=== PATIENT | male | born 1935 | race Asian ===

== ENCOUNTER 2017-05-14 17:22 | Emergency (ER) | payer OTHER ==
[~2017-05-14] VITALS: Ht 162.6 cm; Wt 58.5 kg
[2017-05-14 17:24] VITALS: BP 175/71
[2017-05-14] MEDS ORDERED: ACETAMINOPHEN 500 MG TABLET PO ONE (19:00)
[2017-05-14] MEDS ORDERED: ACETAMINOPHEN 500 MG TABLET ONE (19:06)
== END 2017-05-14 19:55 | disposition home or self-care (01) ==
LOC: ED 19:23
DX: S09.90XA Unspecified injury of head, initial encounter (principal); W11.XXXA Fall on and from ladder, initial encounter; Y93.89 Activity, other specified; Y92.009 Unspecified place in unspecified non-institutional (private) residence as the place of occurrence of the external cause; Y99.9 Unspecified external cause status
CPT/HCPCS: 70450; 72125; 99284

== ENCOUNTER 2020-06-30 14:33 | Inpatient (IN) | payer MEDICARE, OTHER ==
[~2020-06-30] VITALS: Ht 162.6 cm; Wt 65.1 kg
--- NOTE | 2020-06-30 15:20 | NUR ---
PIV PLACED, LABS AND 1 SET BLOOD CX DRAWN AND COLLECTED BY ENGLISH LECTURER. IVF RUNNING. PT SHIVERING, WARM BLANKET PROVIDED. CONNECTED TO MONITORING. XRAY AT BEDSIDE. CALL LIGHT IN REACH.
[2020-06-30] MEDS ORDERED: ACETAMINOPHEN 500 MG TABLET PO ONE (15:30)
[2020-06-30] MEDS ORDERED: SODIUM CHLORIDE FLUSH 10ML SYR IVF ONE (15:30)
[2020-06-30] MEDS ORDERED: ACETAMINOPHEN 500 MG TABLET ONE (15:40)
[2020-06-30 15:46] LABS: BASOPHILS % (AUTO) 0 % (0-1); EOSINOPHILS % (AUTO) 0 % (1-7); LYMPHOCYTES % (AUTO) 27 % (22-44); MEAN CORPUSCULAR HEMOGLOBIN 32.1 pg (27.5-34.5); MEAN CORPUSCULAR HGB CONC 34.7 g/dL (33.2-36.2); MONOCYTES % (AUTO) 8 % (2-9); NEUTROPHILS % (AUTO) 65 % (42-75); PLATELET COUNT 133 x10^3/uL (130-400); RED BLOOD COUNT 4.37 x10^6/uL (4.38-5.82); RED CELL DISTRIBUTION WIDTH 14.2 % (9.4-14.8)
[2020-06-30 15:47] LABS: MD NO
[2020-06-30 15:52] LABS: ALANINE AMINOTRANSFERASE 36 U/L (12-78); ALBUMIN 3.4 g/dL (3.4-5.0); ANION GAP 10 mmol/L (5-15); CALCIUM 8.2 mg/dL (8.5-10.1); CHLORIDE 107 mmol/L (98-107); CREATININE 1.45 mg/dL (0.7-1.3)
[2020-06-30 15:54] LABS: ALKALINE PHOSPHATASE 72 U/L (45-117); BILIRUBIN,TOTAL 0.6 mg/dL (0.2-1.0); TOTAL PROTEIN 7.9 g/dL (6.4-8.2)
[2020-06-30] MEDS ORDERED: SODIUM CHLORIDE 0.9% 1,000ML IVBOLUS ONE (16:00)
[2020-06-30] MEDS ORDERED: CARB200T4 PO (16:18)
[2020-06-30] MEDS ORDERED: AMLO-150 PO (16:18)
[2020-06-30] MEDS ORDERED: FINA5TAB4 PO (16:18)
[2020-06-30 16:23] LABS: MICROSCOPIC AUTO
[2020-06-30] MEDS ORDERED: CEFTRIAXONE PMX 1GM/50ML 50 ML IVPB ONE (16:30)
[2020-06-30] MEDS ORDERED: AZITHROMYCIN 500 MG in SODIUM CHLORIDE 0.9% 250 ML IVPB ONE (16:30)
[2020-06-30] MEDS ORDERED: DEXAMETHASONE 4 MG/ML, 1ML IVPush ONE (16:30)
[2020-06-30] MEDS ORDERED: CEFTRIAXONE PMX 1GM/50ML 50 ML ONE (16:45)
[2020-06-30] MEDS ORDERED: DEXAMETHASONE 4 MG/ML, 5ML ONE (16:45)
--- NOTE | 2020-06-30 16:55 | NUR ---
IV ABX ADMIN PER AUG. 2 SETS BLOOD CX COLLECTED PRIOR TO ADMIN. PT RESTING COMFORTABLY ON [facility].
[2020-06-30] MEDS ORDERED: LACTATED RINGERS 1,000 ML IVBOLUS ONE (17:00)
[2020-06-30] MEDS: DEXAMETHASONE 4 MG/ML, 1ML IVPush SCH (17:00)
[2020-06-30] MEDS ORDERED: POLYETHYLENE GLYCOL 17 GM PACKET PO PRN (17:00)
[2020-06-30] MEDS ORDERED: ONDANSETRON 2MG/ML, 2ML IVPush PRN (17:00)
[2020-06-30] MEDS ORDERED: HEPARIN 5,000 UNITS/ML, 1ML SQ SCH (17:00)
--- NOTE | 2020-06-30 17:55 | NUR ---
BREAK RN NOTE: MD VARNER INFORMED PT HAS NOT HAD COVID TEST. COVID TEST ORDEREDPT A&O, RESPS EVEN AND UNLABORED, PT ABLE TO SPEAK IN FULL SENTENCES WITHOUT DIFFICULTY. NSR ON DESK SERGEANT WITH NO ECTOPY. COVID SWAB COLLECTED AND WALKED TO LAB. BEDSIDE REPORT GIVEN BACK TO PRIMARY RN TIFFANIE WHO IS BACK FROM BREAK. DURING REPORT PT'S SPO2 DROPPED TO 85% ON 4L/MIN VIA NC. OXYGEN TITRATED UP TO 6L/MIN, CURRENTLY SATURATING AT 90% ON 6L NC. PT STILL AWAKE, ALERT, ABLE TO SPEAK WITHOUT DIFFICULTY. PT HAS NO COMPLAINT, STATES "I FEEL GOOD." ALL MONITORS IN PLACE .ZITHROMAX INFUSION COMPLETE.
[2020-06-30] MEDS ORDERED: REMDESIVIR 200 MG in SODIUM CHLORIDE 0.9% 250 ML IVPB ONE (18:00)
--- NOTE | 2020-06-30 18:22 | NUR ---
LEFT MESSAGE WITH DR RIOS ABOUT PT LOW BP AND INCREASED OXYGEN DEMAND. AWAITING ORDERS.
--- NOTE | 2020-06-30 18:33 | NUR ---
DR RIOS AT BEDSIDE FOR ASSESSMENT. VERBAL ORDER TO GIVE BOLUS AND THEN REMDESIVIR. PT PLACED ON NON REBREATHER.
--- NOTE | 2020-06-30 19:21 | NUR ---
DIET TRAY DELIVERED. PT POSITIONED FOR COMFORT. PT EDUCATED TO REMOVE OXYGEN MASK FOR A COUPLE OF BITES OF FOOD, THEN RETURN MASK TO POSITION. LAB AT BEDSIDE.
[2020-06-30] MEDS ORDERED: CARBAMAZEPINE 200 MG TABLET ONE (19:38)
[2020-06-30] MEDS ORDERED: GUAIFENESIN ER 600 MG TABLET ONE (19:39)
[2020-06-30] MEDS ORDERED: ASCORBIC ACID 500 MG TABLET ONE (19:39)
[2020-06-30] MEDS ORDERED: ENOXAPARIN 60 MG/0.6 ML ONE (19:39)
[2020-06-30] MEDS: GUAIFENESIN ER 600 MG TABLET PO SCH (19:42)
[2020-06-30] MEDS: DOXYCYCLINE 100MG CAP PO SCH (19:43)
[2020-06-30] MEDS: CARBAMAZEPINE 200 MG TABLET PO SCH (19:43)
[2020-06-30] MEDS: ASCORBIC ACID 500 MG TABLET PO SCH (19:43)
[2020-06-30] MEDS ORDERED: ENOXAPARIN 60 MG/0.6 ML SQ SCH (20:00)
--- NOTE | 2020-06-30 20:13 | NUR ---
REPORT GIVEN TO KERA CLAYTON. PT RTG TO ROOM [id number].
[2020-06-30 21:13] VITALS: BP 122/72
[2020-06-30 21:20] VITALS: BP 122/72
[2020-07-01 02:53] VITALS: BP 113/65
[2020-07-01 06:13] LABS: ALBUMIN 2.7 g/dL (3.4-5.0); ANION GAP 5 mmol/L (5-15); CALCIUM 7.8 mg/dL (8.5-10.1); CHLORIDE 116 mmol/L (98-107)
[2020-07-01 06:18] LABS: ALANINE AMINOTRANSFERASE 37 U/L (12-78); ALKALINE PHOSPHATASE 66 U/L (45-117); BILIRUBIN,TOTAL 0.4 mg/dL (0.2-1.0); TOTAL PROTEIN 6.6 g/dL (6.4-8.2)
[2020-07-01 07:01] VITALS: BP 110/69
[2020-07-01] MEDS: CARBAMAZEPINE 200 MG TABLET PO SCH ×2 (08:18→20:48)
[2020-07-01] MEDS: ZINC SULFATE 220 MG CAPSULE PO SCH (08:18)
[2020-07-01] MEDS: GUAIFENESIN ER 600 MG TABLET PO SCH ×2 (08:18→20:47)
[2020-07-01] MEDS: FINASTERIDE 5 MG TABLET PO SCH (08:18)
[2020-07-01] MEDS: ASCORBIC ACID 500 MG TABLET PO SCH ×2 (08:19→18:06)
[2020-07-01] MEDS: CHOLECALCIFEROL 5,000u TAB PO SCH (08:19)
[2020-07-01] MEDS: DOXYCYCLINE 100MG CAP PO SCH ×2 (08:19→20:48)
[2020-07-01] MEDS: ENOXAPARIN 60 MG/0.6 ML SQ SCH ×2 (08:20→20:47)
[2020-07-01] MEDS: DEXAMETHASONE 4 MG/ML, 1ML IVPush SCH (08:21)
[2020-07-01] MEDS ORDERED: AMLODIPINE 5 MG TABLET PO SCH (09:00)
[2020-07-01 13:33] VITALS: BP 123/73
[2020-07-01] MEDS: CEFTRIAXONE PMX 1GM/50ML 50 ML IV SCH (15:38)
[2020-07-01] MEDS: REMDESIVIR 100 MG in SODIUM CHLORIDE 0.9% 250 ML IVPB SCH (18:06)
[2020-07-01 20:42] VITALS: BP 123/70
[2020-07-02 00:56] VITALS: BP 132/62
[2020-07-02 06:21] LABS: CALCIUM 7.9 mg/dL (8.5-10.1); CHLORIDE 113 mmol/L (98-107)
[2020-07-02 06:27] LABS: ALANINE AMINOTRANSFERASE 33 U/L (12-78); ALBUMIN 2.5 g/dL (3.4-5.0); ALKALINE PHOSPHATASE 66 U/L (45-117); ANION GAP 8 mmol/L (5-15); BILIRUBIN,TOTAL 0.5 mg/dL (0.2-1.0); CREATININE 0.91 mg/dL (0.7-1.3); TOTAL PROTEIN 6.3 g/dL (6.4-8.2)
[2020-07-02 06:28] VITALS: BP 149/56
[2020-07-02] MEDS: ASCORBIC ACID 500 MG TABLET PO SCH ×2 (08:03→17:53)
[2020-07-02] MEDS: ZINC SULFATE 220 MG CAPSULE PO SCH (08:03)
[2020-07-02] MEDS: DEXAMETHASONE 4 MG/ML, 1ML IVPush SCH (08:03)
[2020-07-02] MEDS: GUAIFENESIN ER 600 MG TABLET PO SCH ×2 (08:03→20:20)
[2020-07-02] MEDS: CARBAMAZEPINE 200 MG TABLET PO SCH ×2 (08:03→20:20)
[2020-07-02] MEDS: FINASTERIDE 5 MG TABLET PO SCH (08:03)
[2020-07-02] MEDS: CHOLECALCIFEROL 5,000u TAB PO SCH (08:04)
[2020-07-02] MEDS: DOXYCYCLINE 100MG CAP PO SCH ×2 (08:04→20:19)
[2020-07-02] MEDS: ENOXAPARIN 60 MG/0.6 ML SQ SCH ×2 (08:04→20:19)
[2020-07-02] MEDS: FLUTICASONE/VILANTEROL 100-25MCG/INH INH SCH (09:53)
[2020-07-02 12:06] VITALS: BP 129/83
[2020-07-02] MEDS: CEFTRIAXONE PMX 1GM/50ML 50 ML IV SCH (14:42)
[2020-07-02] MEDS: REMDESIVIR 100 MG in SODIUM CHLORIDE 0.9% 250 ML IVPB SCH (17:53)
[2020-07-02 20:14] VITALS: BP 165/85
[2020-07-02] MEDS: MELATONIN 5 MG TABLET PO PRN (20:20)
[2020-07-03 00:54] VITALS: BP 147/65
[2020-07-03 07:43] VITALS: BP 143/82
[2020-07-03 08:15] LABS: BASOPHILS % (AUTO) 0 % (0-1); EOSINOPHILS % (AUTO) 0 % (1-7); LYMPHOCYTES % (AUTO) 9 % (22-44); MEAN CORPUSCULAR HEMOGLOBIN 31.9 pg (27.5-34.5); MEAN CORPUSCULAR HGB CONC 34.8 g/dL (33.2-36.2); MEAN PLATELET VOLUME 8.1 fL (7.4-10.4); MONOCYTES % (AUTO) 6 % (2-9); NEUTROPHILS % (AUTO) 85 % (42-75); PLATELET COUNT 169 x10^3/uL (130-400); RED BLOOD COUNT 4.38 x10^6/uL (4.38-5.82); RED CELL DISTRIBUTION WIDTH 14.8 % (9.4-14.8)
[2020-07-03 08:22] LABS: MD NO
[2020-07-03 08:29] LABS: ALBUMIN 2.9 g/dL (3.4-5.0); ANION GAP 9 mmol/L (5-15); CHLORIDE 115 mmol/L (98-107)
[2020-07-03 08:32] LABS: ALANINE AMINOTRANSFERASE 37 U/L (12-78); ALKALINE PHOSPHATASE 86 U/L (45-117); BILIRUBIN,TOTAL 1.3 mg/dL (0.2-1.0); CREATININE 0.87 mg/dL (0.7-1.3); TOTAL PROTEIN 6.8 g/dL (6.4-8.2)
[2020-07-03] MEDS: ASCORBIC ACID 500 MG TABLET PO SCH ×2 (08:56→17:51)
[2020-07-03] MEDS: GUAIFENESIN ER 600 MG TABLET PO SCH ×2 (08:56→20:41)
[2020-07-03] MEDS: CHOLECALCIFEROL 5,000u TAB PO SCH (08:56)
[2020-07-03] MEDS: DEXAMETHASONE 4 MG/ML, 1ML IVPush SCH (08:56)
[2020-07-03] MEDS: CARBAMAZEPINE 200 MG TABLET PO SCH ×2 (08:56→20:41)
[2020-07-03] MEDS: ENOXAPARIN 60 MG/0.6 ML SQ SCH ×2 (08:56→20:41)
[2020-07-03] MEDS: FINASTERIDE 5 MG TABLET PO SCH (08:56)
[2020-07-03] MEDS: ZINC SULFATE 220 MG CAPSULE PO SCH (08:56)
[2020-07-03] MEDS: DOXYCYCLINE 100MG CAP PO SCH ×2 (08:57→20:41)
[2020-07-03] MEDS: FLUTICASONE/VILANTEROL 100-25MCG/INH INH SCH (08:59)
[2020-07-03] MEDS ORDERED: POTASSIUM CHLORIDE 20 MEQ in SODIUM CHLORIDE 0.9% 250 ML IV ONE (10:00)
[2020-07-03 14:12] VITALS: BP 159/80
[2020-07-03] MEDS: CEFTRIAXONE PMX 1GM/50ML 50 ML IV SCH (15:16)
[2020-07-03] MEDS: REMDESIVIR 100 MG in SODIUM CHLORIDE 0.9% 250 ML IVPB SCH (17:50)
[2020-07-03 19:07] VITALS: BP 181/93
[2020-07-04 01:03] VITALS: BP 174/84
[2020-07-04 07:40] VITALS: BP 130/77
[2020-07-04] MEDS: ENOXAPARIN 60 MG/0.6 ML SQ SCH ×2 (08:00→20:00)
[2020-07-04] MEDS: GUAIFENESIN ER 600 MG TABLET PO SCH ×2 (08:04→20:41)
[2020-07-04] MEDS: DEXAMETHASONE 4 MG/ML, 1ML IVPush SCH (08:04)
[2020-07-04] MEDS: FINASTERIDE 5 MG TABLET PO SCH (08:05)
[2020-07-04] MEDS: CARBAMAZEPINE 200 MG TABLET PO SCH ×2 (08:06→20:41)
[2020-07-04] MEDS: CHOLECALCIFEROL 5,000u TAB PO SCH (08:06)
[2020-07-04] MEDS: ASCORBIC ACID 500 MG TABLET PO SCH ×2 (08:06→16:19)
[2020-07-04] MEDS: ZINC SULFATE 220 MG CAPSULE PO SCH (08:07)
[2020-07-04] MEDS: DOXYCYCLINE 100MG CAP PO SCH ×2 (08:08→20:40)
[2020-07-04] MEDS: FLUTICASONE/VILANTEROL 100-25MCG/INH INH SCH (08:11)
[2020-07-04 09:33] LABS: ALBUMIN 2.9 g/dL (3.4-5.0); ANION GAP 12 mmol/L (5-15); CALCIUM 8.4 mg/dL (8.5-10.1); CHLORIDE 117 mmol/L (98-107)
[2020-07-04 09:37] LABS: ALANINE AMINOTRANSFERASE 65 U/L (12-78); ALKALINE PHOSPHATASE 107 U/L (45-117); BILIRUBIN,TOTAL 1.4 mg/dL (0.2-1.0); CREATININE 0.93 mg/dL (0.7-1.3)
[2020-07-04 12:58] LABS: INTERNATIONAL NORMALIZED RATIO 1.35 (0.93-1.1); PROTHROMBIN TIME 14.3 Seconds (9.6-11.5)
[2020-07-04] MEDS: CEFTRIAXONE PMX 1GM/50ML 50 ML IV SCH (16:19)
[2020-07-04] MEDS: REMDESIVIR 100 MG in SODIUM CHLORIDE 0.9% 250 ML IVPB SCH (17:55)
[2020-07-04 19:29] VITALS: BP 144/81
[2020-07-05 01:44] VITALS: BP 151/83
[2020-07-05] MEDS ORDERED: LORazepam 2 MG/ML, 1ML ONE (03:41)
[2020-07-05] MEDS ORDERED: LORazepam 2 MG/ML, 1ML IVPush ONE (04:00)
[2020-07-05] MEDS: ASCORBIC ACID 500 MG TABLET PO SCH ×2 (08:00→17:00)
[2020-07-05 08:06] VITALS: BP 144/96
[2020-07-05] MEDS: ZINC SULFATE 220 MG CAPSULE PO SCH (09:00)
[2020-07-05] MEDS: FLUTICASONE/VILANTEROL 100-25MCG/INH INH SCH (09:00)
[2020-07-05] MEDS: DOXYCYCLINE 100MG CAP PO SCH ×2 (09:00→20:37)
[2020-07-05] MEDS: CHOLECALCIFEROL 5,000u TAB PO SCH (09:00)
[2020-07-05] MEDS: FINASTERIDE 5 MG TABLET PO SCH (09:00)
[2020-07-05] MEDS: GUAIFENESIN ER 600 MG TABLET PO SCH ×2 (09:00→20:37)
[2020-07-05] MEDS: CARBAMAZEPINE 200 MG TABLET PO SCH ×2 (09:00→20:37)
[2020-07-05] MEDS: ENOXAPARIN 60 MG/0.6 ML SQ SCH ×2 (09:30→20:36)
[2020-07-05] MEDS: DEXAMETHASONE 4 MG/ML, 1ML IVPush SCH (09:30)
[2020-07-05] MEDS ORDERED: POTASSIUM CHLORIDE 20 MEQ in SODIUM CHLORIDE 0.9% 250 ML IV ONE (12:30)
[2020-07-05] MEDS ORDERED: FUROSEMIDE 40 MG/4 ML IV ONE ×2 (14:30→21:00)
[2020-07-05] MEDS: CEFTRIAXONE PMX 1GM/50ML 50 ML IV SCH (15:00)
[2020-07-05] MEDS ORDERED: POTASSIUM CHLORIDE 20 MEQ TAB.ER.PRT PO SCH (17:00)
[2020-07-05] MEDS ORDERED: POTASSIUM CHLORIDE 40 MEQ in SODIUM CHLORIDE 0.9% 500 ML IV ONE (17:30)
[2020-07-05] MEDS: ACETAMINOPHEN 325 MG TABLET PO PRN (20:37)
[2020-07-05] MEDS: MELATONIN 5 MG TABLET PO PRN (20:37)
[2020-07-06 05:26] LABS: BASOPHILS % (AUTO) 0 % (0-1); EOSINOPHILS % (AUTO) 0 % (1-7); LYMPHOCYTES % (AUTO) 10 % (22-44); MEAN CORPUSCULAR HEMOGLOBIN 32.1 pg (27.5-34.5); MEAN CORPUSCULAR HGB CONC 34.8 g/dL (33.2-36.2); MEAN PLATELET VOLUME 8.7 fL (7.4-10.4); MONOCYTES % (AUTO) 4 % (2-9); NEUTROPHILS % (AUTO) 86 % (42-75); PLATELET COUNT 194 x10^3/uL (130-400); RED BLOOD COUNT 4.85 x10^6/uL (4.38-5.82); RED CELL DISTRIBUTION WIDTH 14.4 % (9.4-14.8)
[2020-07-06 05:27] LABS: MD NO
[2020-07-06 05:39] LABS: CHLORIDE 119 mmol/L (98-107)
[2020-07-06 05:48] LABS: ALBUMIN 2.8 g/dL (3.4-5.0); ANION GAP 9 mmol/L (5-15); CALCIUM 8.9 mg/dL (8.5-10.1); CREATININE 1.21 mg/dL (0.7-1.3)
[2020-07-06] MEDS: ENOXAPARIN 60 MG/0.6 ML SQ SCH ×2 (08:02→20:37)
[2020-07-06] MEDS: GUAIFENESIN ER 600 MG TABLET PO SCH ×2 (08:02→21:54)
[2020-07-06] MEDS: DEXAMETHASONE 4 MG/ML, 1ML IVPush SCH (08:02)
[2020-07-06] MEDS: DOXYCYCLINE 100MG CAP PO SCH ×2 (08:02→20:37)
[2020-07-06] MEDS: ASCORBIC ACID 500 MG TABLET PO SCH ×2 (08:02→16:35)
[2020-07-06] MEDS: POTASSIUM CHLORIDE 20 MEQ TAB.ER.PRT PO SCH ×2 (08:03→16:35)
[2020-07-06] MEDS: CARBAMAZEPINE 200 MG TABLET PO SCH ×2 (08:03→20:38)
[2020-07-06] MEDS: CHOLECALCIFEROL 5,000u TAB PO SCH (08:03)
[2020-07-06] MEDS: ZINC SULFATE 220 MG CAPSULE PO SCH (08:03)
[2020-07-06] MEDS: FINASTERIDE 5 MG TABLET PO SCH (08:03)
[2020-07-06] MEDS: FUROSEMIDE 40 MG/4 ML IV SCH ×2 (08:05→16:35)
[2020-07-06] MEDS: FLUTICASONE/VILANTEROL 100-25MCG/INH INH SCH (09:00)
[2020-07-06] MEDS: CEFTRIAXONE PMX 1GM/50ML 50 ML IV SCH (16:35)
[2020-07-06 20:24] VITALS: BP 136/83
[2020-07-06] MEDS: ACETAMINOPHEN 325 MG TABLET PO PRN (20:38)
[2020-07-06] MEDS: MELATONIN 5 MG TABLET PO PRN (20:38)
[2020-07-07 00:25] VITALS: BP 110/71
[2020-07-07] MEDS: DOXYCYCLINE 100MG CAP PO SCH ×2 (09:00→20:36)
[2020-07-07] MEDS: ASCORBIC ACID 500 MG TABLET PO SCH ×2 (09:21→16:03)
[2020-07-07] MEDS: ZINC SULFATE 220 MG CAPSULE PO SCH (09:21)
[2020-07-07] MEDS: GUAIFENESIN 200 MG TABLET PO SCH ×3 (09:21→20:36)
[2020-07-07] MEDS: CHOLECALCIFEROL 5,000u TAB PO SCH (09:21)
[2020-07-07] MEDS: ENOXAPARIN 60 MG/0.6 ML SQ SCH (09:21)
[2020-07-07] MEDS: DEXAMETHASONE 4 MG/ML, 1ML IVPush SCH (09:21)
[2020-07-07] MEDS: CARBAMAZEPINE 200 MG TABLET PO SCH (09:21)
[2020-07-07] MEDS ORDERED: LACTULOSE 20 GM/30 ML UDC PO PRN (09:30)
[2020-07-07] MEDS ORDERED: BISACODYL 10 MG SUPP PR PRN (09:30)
[2020-07-07] MEDS ORDERED: LACTULOSE 20 GM/30 ML UDC NG PRN (09:30)
[2020-07-07 09:32] LABS: ANION GAP 13 mmol/L (5-15); CALCIUM 9.1 mg/dL (8.5-10.1); CHLORIDE 117 mmol/L (98-107); CREATININE 1.74 mg/dL (0.7-1.3)
[2020-07-07] MEDS: ACETAMINOPHEN 325 MG TABLET PO PRN ×3 (09:34→20:35)
[2020-07-07] MEDS: FINASTERIDE 5 MG TABLET PO SCH (09:35)
[2020-07-07] MEDS ORDERED: POTASSIUM CHLORIDE 20 MEQ TAB.ER.PRT PO ONE (14:30)
[2020-07-07] MEDS: CEFTRIAXONE PMX 1GM/50ML 50 ML IV SCH (16:04)
[2020-07-07] MEDS: MELATONIN 5 MG TABLET PO PRN (20:36)
[2020-07-07] MEDS: SENNA 176 MG/5 ML ORAL SOL NG SCH (20:36)
[2020-07-08 05:43] LABS: BASOPHILS % (AUTO) 0 % (0-1); EOSINOPHILS % (AUTO) 1 % (1-7); LYMPHOCYTES % (AUTO) 4 % (22-44); MEAN CORPUSCULAR HEMOGLOBIN 31.6 pg (27.5-34.5); MEAN CORPUSCULAR HGB CONC 34.1 g/dL (33.2-36.2); MEAN PLATELET VOLUME 9.6 fL (7.4-10.4); MONOCYTES % (AUTO) 2 % (2-9); NEUTROPHILS % (AUTO) 94 % (42-75); PLATELET COUNT 178 x10^3/uL (130-400); RED BLOOD COUNT 4.99 x10^6/uL (4.38-5.82)
[2020-07-08 05:54] LABS: ALANINE AMINOTRANSFERASE 38 U/L (12-78); ALBUMIN 2.5 g/dL (3.4-5.0); ANION GAP 11 mmol/L (5-15); CALCIUM 8.8 mg/dL (8.5-10.1); CHLORIDE 121 mmol/L (98-107); CREATININE 1.42 mg/dL (0.7-1.3)
[2020-07-08 05:57] LABS: ALKALINE PHOSPHATASE 104 U/L (45-117); BILIRUBIN,TOTAL 0.9 mg/dL (0.2-1.0); TOTAL PROTEIN 7.8 g/dL (6.4-8.2)
[2020-07-08 06:04] LABS: MD SCAN
[2020-07-08] MEDS ORDERED: ENOXAPARIN 60 MG/0.6 ML SQ SCH (08:00)
[2020-07-08] MEDS ORDERED: MIDAZOLAM 1 MG/ML, 5ML IVPush ONE (09:30)
[2020-07-08] MEDS ORDERED: ETOMIDATE 20 MG/10 ML IVPush ONE (09:30)
[2020-07-08] MEDS: PROPOFOL 100 ML IV PRN ×2 (09:45→16:16)
--- NOTE | 2020-07-08 09:45 | NUR ---
TF goal if needed: w/ propofol: OSMOLITE 1.2 @ 55ML/HR off propofol: OSMOLITE 1.2 @ 60ML/HR
[2020-07-08] MEDS ORDERED: FENTANYL PF 100 MCG/2ML IVPush PRN (10:00)
[2020-07-08] MEDS ORDERED: PROPOFOL 100 ML IV PRN (10:00)
[2020-07-08] MEDS ORDERED: PHARMACY MAY ADJ FOR RENAL FX MC SCH (10:00)
[2020-07-08] MEDS ORDERED: LIDOCAINE-MPF 1%, 2ML ENDO PRN (10:00)
[2020-07-08] MEDS: GUAIFENESIN 200 MG TABLET PO SCH ×3 (10:28→20:49)
[2020-07-08] MEDS: DEXAMETHASONE 4 MG/ML, 1ML IVPush SCH (10:28)
[2020-07-08] MEDS: DOCUSATE 50 MG/5 ML, 10ML UDC PO SCH (10:28)
[2020-07-08] MEDS: CARBAMAZEPINE 200 MG TABLET PO SCH (10:29)
[2020-07-08] MEDS: ASCORBIC ACID 500 MG TABLET PO SCH ×2 (10:29→16:16)
[2020-07-08] MEDS: ENOXAPARIN 60 MG/0.6 ML SQ SCH ×2 (10:30→20:49)
[2020-07-08] MEDS: FINASTERIDE 5 MG TABLET PO SCH (10:30)
[2020-07-08] MEDS: CHOLECALCIFEROL 5,000u TAB PO SCH (10:33)
[2020-07-08] MEDS: ZINC SULFATE 220 MG CAPSULE PO SCH (10:33)
[2020-07-08] MEDS: PANTOPRAZOLE 40 MG IV IV SCH (10:50)
[2020-07-08] MEDS ORDERED: PROPOFOL 10 MG/ML, 100ML IV ONE (13:30)
[2020-07-08] MEDS ORDERED: MIDAZOLAM 1 MG/ML, 5ML ONE (13:30)
[2020-07-08] MEDS ORDERED: ETOMIDATE 20 MG/10 ML ONE (13:30)
[2020-07-08] MEDS: ACETAMINOPHEN 325 MG TABLET PO PRN (14:12)
[2020-07-08 14:33] LABS: FIO2 70 %
[2020-07-08] MEDS: CEFTRIAXONE PMX 1GM/50ML 50 ML IV SCH (15:24)
[2020-07-08] MEDS ORDERED: NOREPINEPHRINE 8 MG in SODIUM CHLORIDE 0.9% 242 ML IV PRN (15:30)
[2020-07-08] MEDS: SENNA 176 MG/5 ML ORAL SOL NG SCH (20:49)
[2020-07-09 04:26] LABS: BASOPHILS % (AUTO) 0 % (0-1); EOSINOPHILS % (AUTO) 1 % (1-7); LYMPHOCYTES % (AUTO) 5 % (22-44); MEAN CORPUSCULAR HEMOGLOBIN 32.4 pg (27.5-34.5); MEAN CORPUSCULAR HGB CONC 34.4 g/dL (33.2-36.2); MEAN PLATELET VOLUME 9.6 fL (7.4-10.4); MONOCYTES % (AUTO) 1 % (2-9); NEUTROPHILS % (AUTO) 93 % (42-75); PLATELET COUNT 161 x10^3/uL (130-400); RED BLOOD COUNT 4.47 x10^6/uL (4.38-5.82); RED CELL DISTRIBUTION WIDTH 15.2 % (9.4-14.8)
[2020-07-09 04:30] LABS: MD NO
[2020-07-09 04:33] LABS: ANION GAP 4 mmol/L (5-15); CALCIUM 7.8 mg/dL (8.5-10.1); CHLORIDE 119 mmol/L (98-107); CREATININE 1.42 mg/dL (0.7-1.3)
[2020-07-09] MEDS: DEXAMETHASONE 4 MG/ML, 1ML IVPush SCH (07:48)
[2020-07-09] MEDS: ZINC SULFATE 220 MG CAPSULE PO SCH (07:48)
[2020-07-09] MEDS: CHOLECALCIFEROL 5,000u TAB PO SCH (07:48)
[2020-07-09] MEDS: DOCUSATE 50 MG/5 ML, 10ML UDC PO SCH (07:48)
[2020-07-09] MEDS: ASCORBIC ACID 500 MG TABLET PO SCH ×2 (07:48→16:48)
[2020-07-09] MEDS: GUAIFENESIN 200 MG TABLET PO SCH ×3 (07:48→21:00)
[2020-07-09] MEDS: ENOXAPARIN 60 MG/0.6 ML SQ SCH ×2 (07:49→21:04)
[2020-07-09] MEDS: ACETAMINOPHEN 325 MG TABLET PO PRN ×3 (09:42→21:04)
[2020-07-09] MEDS: CARBAMAZEPINE 200 MG TABLET PO SCH (09:42)
[2020-07-09] MEDS: FINASTERIDE 5 MG TABLET PO SCH (10:36)
[2020-07-09] MEDS: PANTOPRAZOLE 40 MG IV IV SCH (10:36)
[2020-07-09] MEDS: PROPOFOL 100 ML IV PRN ×2 (14:31→23:53)
[2020-07-10 03:50] LABS: ANION GAP 4 mmol/L (5-15); CALCIUM 8.1 mg/dL (8.5-10.1); CHLORIDE 118 mmol/L (98-107); CREATININE 1.54 mg/dL (0.7-1.3)
[2020-07-10 04:06] LABS: BASOPHILS % (AUTO) 0 % (0-1); EOSINOPHILS % (AUTO) 1 % (1-7); LYMPHOCYTES % (AUTO) 4 % (22-44); MEAN CORPUSCULAR HEMOGLOBIN 31.9 pg (27.5-34.5); MEAN CORPUSCULAR HGB CONC 33.6 g/dL (33.2-36.2); MEAN PLATELET VOLUME 9.7 fL (7.4-10.4); MONOCYTES % (AUTO) 1 % (2-9); NEUTROPHILS % (AUTO) 93 % (42-75); PLATELET COUNT 149 x10^3/uL (130-400); RED BLOOD COUNT 4.21 x10^6/uL (4.38-5.82); RED CELL DISTRIBUTION WIDTH 15.2 % (9.4-14.8)
[2020-07-10 04:58] LABS: MD SCAN
[2020-07-10] MEDS: PANTOPRAZOLE 40 MG IV IV SCH (09:00)
[2020-07-10] MEDS ORDERED: ZINC SULFATE 220 MG CAPSULE PO SCH (09:00)
[2020-07-10] MEDS: DOCUSATE 50 MG/5 ML, 10ML UDC PO SCH (09:00)
[2020-07-10] MEDS ORDERED: CHOLECALCIFEROL 5,000u TAB PO SCH (09:00)
[2020-07-10] MEDS: CARBAMAZEPINE 200 MG TABLET PO SCH (09:21)
[2020-07-10] MEDS: IBUPROFEN 200 MG TABLET PO PRN (09:21)
[2020-07-10] MEDS: ASCORBIC ACID 500 MG TABLET PO SCH (09:22)
[2020-07-10] MEDS: GUAIFENESIN 200 MG TABLET PO SCH ×3 (09:22→21:00)
[2020-07-10] MEDS: FINASTERIDE 5 MG TABLET PO SCH (09:22)
[2020-07-10] MEDS: ENOXAPARIN 60 MG/0.6 ML SQ SCH (09:23)
[2020-07-10] MEDS: INSULIN LISPRO 100 UNITS/ML, PEN SQ-INSULIN SCH ×3 (09:26→21:00)
[2020-07-10] MEDS ORDERED: FUROSEMIDE 40 MG/4 ML IV ONE (10:00)
[2020-07-10] MEDS ORDERED: INSULIN LISPRO 100 UNITS/ML, PEN SQ-INSULIN SCH (11:00)
[2020-07-10] MEDS ORDERED: LORazepam 2 MG/ML, 1ML ONE (15:38)
[2020-07-10] MEDS ORDERED: LORazepam 2 MG/ML, 1ML IVPush ONE (16:00)
[2020-07-11] MEDS: INSULIN LISPRO 100 UNITS/ML, PEN SQ-INSULIN SCH ×4 (03:00→20:33)
[2020-07-11 03:10] LABS: MEAN CORPUSCULAR HEMOGLOBIN 31.6 pg (27.5-34.5); MEAN CORPUSCULAR HGB CONC 33.9 g/dL (33.2-36.2); MEAN PLATELET VOLUME 9.6 fL (7.4-10.4); PLATELET COUNT 146 x10^3/uL (130-400); RED CELL DISTRIBUTION WIDTH 14.9 % (9.4-14.8)
[2020-07-11 03:18] LABS: ANION GAP 5 mmol/L (5-15); CALCIUM 8.7 mg/dL (8.5-10.1); CHLORIDE 118 mmol/L (98-107); CREATININE 1.27 mg/dL (0.7-1.3); TRIGLYCERIDES 365 mg/dL (50-200)
[2020-07-11 03:35] LABS: MD YES
[2020-07-11 03:37] LABS: ANISOCYTOSIS 1+; BAND#(MANUAL) 0.37 x10^3/uL; BANDS%(MANUAL) 3 % (0-7); LYMPH#(MANUAL) 0.37 x10^3/uL (1-3.4); LYMPHS% (MANUAL) 3 % (22-44); MONOS#(MANUAL) 0.12 x10^3/uL (0.3-2.7); MONOS% (MANUAL) 1 % (2-9); MYELOCYTES# (MANUAL) 0.12 x10^3/uL (0-0); MYELOCYTES% (MANUAL) 1 % (0-0); SEG#(MANUAL) 11.32 x10^3/uL (1.8-6.8); SEGS% (MANUAL) 92 % (42-75)
[2020-07-11 03:38] LABS: <PLATELET ESTIMATE> ADEQUATE
[2020-07-11 03:39] LABS: <PLT MORPHOLOGY> NORMAL PLT MORPH
[2020-07-11] MEDS ORDERED: ENOXAPARIN 60 MG/0.6 ML SQ SCH (09:00)
[2020-07-11] MEDS: PANTOPRAZOLE 40 MG IV IV SCH (09:41)
[2020-07-11] MEDS: METOPROLOL TARTRATE 25 MG TAB PO SCH ×2 (10:36→17:03)
[2020-07-11] MEDS: FINASTERIDE 5 MG TABLET PO SCH (10:36)
[2020-07-11] MEDS: GUAIFENESIN 100 MG/5 ML, 10ML UDC PO SCH ×3 (10:36→20:19)
[2020-07-11] MEDS: DOCUSATE 50 MG/5 ML, 10ML UDC PO SCH (10:36)
[2020-07-11] MEDS: CARBAMAZEPINE 200 MG TABLET PO SCH (10:36)
[2020-07-11] MEDS: ACETAMINOPHEN 325 MG TABLET PO PRN (10:37)
[2020-07-11] MEDS: ENOXAPARIN 40 MG/0.4 ML SQ SCH (20:19)
[2020-07-11] MEDS: MELATONIN 5 MG TABLET PO PRN (20:19)
[2020-07-12] MEDS: INSULIN LISPRO 100 UNITS/ML, PEN SQ-INSULIN SCH ×4 (03:00→21:00)
[2020-07-12 04:10] LABS: BASOPHILS % (AUTO) 0 % (0-1); EOSINOPHILS % (AUTO) 1 % (1-7); LYMPHOCYTES % (AUTO) 7 % (22-44); MD NO; MEAN CORPUSCULAR HEMOGLOBIN 31.9 pg (27.5-34.5); MEAN CORPUSCULAR HGB CONC 34.1 g/dL (33.2-36.2); MEAN PLATELET VOLUME 9.7 fL (7.4-10.4); MONOCYTES % (AUTO) 2 % (2-9); NEUTROPHILS % (AUTO) 89 % (42-75); PLATELET COUNT 146 x10^3/uL (130-400); RED BLOOD COUNT 4.04 x10^6/uL (4.38-5.82); RED CELL DISTRIBUTION WIDTH 14.8 % (9.4-14.8)
[2020-07-12 04:21] LABS: ANION GAP 5 mmol/L (5-15); CALCIUM 8.7 mg/dL (8.5-10.1); CHLORIDE 117 mmol/L (98-107); CREATININE 1.16 mg/dL (0.7-1.3)
[2020-07-12] MEDS: METOPROLOL TARTRATE 25 MG TAB PO SCH ×2 (05:36→17:58)
[2020-07-12] MEDS: DOCUSATE 50 MG/5 ML, 10ML UDC PO SCH (07:21)
[2020-07-12] MEDS: ENOXAPARIN 40 MG/0.4 ML SQ SCH (08:22)
[2020-07-12] MEDS: DEXTROSE 5% 1,000 ML IV SCH (08:22)
[2020-07-12] MEDS: GUAIFENESIN 100 MG/5 ML, 10ML UDC PO SCH ×3 (08:22→20:03)
[2020-07-12] MEDS: CARBAMAZEPINE 200 MG TABLET PO SCH (08:22)
[2020-07-12] MEDS: FINASTERIDE 5 MG TABLET PO SCH (08:22)
[2020-07-12] MEDS: PANTOPRAZOLE 40 MG IV IV SCH (08:50)
[2020-07-12] MEDS: ACETAMINOPHEN 325 MG TABLET PO PRN ×2 (09:54→18:51)
[2020-07-12] MEDS ORDERED: QUETIAPINE 25MG TABLET PO SCH (11:00)
[2020-07-12] MEDS: NOREPINEPHRINE 8 MG in SODIUM CHLORIDE 0.9% 242 ML IV PRN (12:44)
[2020-07-12 14:25] LABS: MICROSCOPIC AUTO
[2020-07-12] MEDS ORDERED: FUROSEMIDE 40 MG/4 ML IV ONE (19:30)
[2020-07-12] MEDS ORDERED: VANCOMYCIN PER PHARMACY MC PRN (19:30)
[2020-07-12] MEDS ORDERED: VANCOMYCIN 1,200 MG in SODIUM CHLORIDE 0.9% 250 ML IV ONE (20:00)
[2020-07-12] MEDS ORDERED: PHARMACOKINETIC MONITORING MC PRN (20:00)
[2020-07-12] MEDS: MEROPENEM 1 GM in SODIUM CHLORIDE 0.9% 100 ML IV SCH (20:02)
[2020-07-12] MEDS: MELATONIN 5 MG TABLET PO PRN (20:03)
[2020-07-12] MEDS ORDERED: ENOXAPARIN 60 MG/0.6 ML SQ SCH (20:30)
[2020-07-13] MEDS: DEXTROSE 5% 1,000 ML IV SCH (03:40)
[2020-07-13] MEDS: INSULIN LISPRO 100 UNITS/ML, PEN SQ-INSULIN SCH ×4 (03:40→21:00)
[2020-07-13 04:04] LABS: BASOPHILS % (AUTO) 0 % (0-1); EOSINOPHILS % (AUTO) 1 % (1-7); LYMPHOCYTES % (AUTO) 5 % (22-44); MEAN CORPUSCULAR HEMOGLOBIN 31.6 pg (27.5-34.5); MEAN PLATELET VOLUME 9.5 fL (7.4-10.4); MONOCYTES % (AUTO) 2 % (2-9); NEUTROPHILS % (AUTO) 92 % (42-75); PLATELET COUNT 133 x10^3/uL (130-400); RED CELL DISTRIBUTION WIDTH 14.9 % (9.4-14.8)
[2020-07-13 04:07] LABS: MD NO
[2020-07-13 04:13] LABS: ANION GAP 6 mmol/L (5-15); CHLORIDE 107 mmol/L (98-107); CREATININE 1.09 mg/dL (0.7-1.3)
[2020-07-13] MEDS: ACETAMINOPHEN 325 MG TABLET PO PRN ×2 (06:17→19:29)
[2020-07-13] MEDS: NOREPINEPHRINE 8 MG in SODIUM CHLORIDE 0.9% 242 ML IV PRN (06:28)
[2020-07-13] MEDS: DOCUSATE 50 MG/5 ML, 10ML UDC PO SCH (07:45)
[2020-07-13] MEDS: MEROPENEM 1 GM in SODIUM CHLORIDE 0.9% 100 ML IV SCH ×2 (07:54→20:29)
[2020-07-13] MEDS: GUAIFENESIN 100 MG/5 ML, 10ML UDC PO SCH ×3 (07:55→19:28)
[2020-07-13] MEDS: CARBAMAZEPINE 200 MG TABLET PO SCH (07:55)
[2020-07-13] MEDS: FINASTERIDE 5 MG TABLET PO SCH (08:28)
[2020-07-13] MEDS: ENOXAPARIN 40 MG/0.4 ML SQ SCH (08:29)
[2020-07-13] MEDS: PANTOPRAZOLE 40 MG IV IV SCH (09:00)
[2020-07-13] MEDS ORDERED: VANCOMYCIN 1,200 MG in SODIUM CHLORIDE 0.9% 250 ML IV ONE (12:00)
[2020-07-13] MEDS ORDERED: FUROSEMIDE 20 MG/2 ML ONE (17:42)
[2020-07-13] MEDS ORDERED: FUROSEMIDE 20 MG/2 ML IV ONE (18:00)
[2020-07-13] MEDS: IBUPROFEN 200 MG TABLET PO PRN (19:29)
[2020-07-14] MEDS: INSULIN LISPRO 100 UNITS/ML, PEN SQ-INSULIN SCH ×4 (03:00→20:00)
[2020-07-14 03:33] LABS: BASOPHILS % (AUTO) 0 % (0-1); EOSINOPHILS % (AUTO) 1 % (1-7); LYMPHOCYTES % (AUTO) 7 % (22-44); MEAN CORPUSCULAR HEMOGLOBIN 32.2 pg (27.5-34.5); MEAN CORPUSCULAR HGB CONC 34.7 g/dL (33.2-36.2); MEAN PLATELET VOLUME 9.5 fL (7.4-10.4); MONOCYTES % (AUTO) 3 % (2-9); NEUTROPHILS % (AUTO) 88 % (42-75); PLATELET COUNT 124 x10^3/uL (130-400); RED CELL DISTRIBUTION WIDTH 14.8 % (9.4-14.8)
[2020-07-14 03:38] LABS: MD NO
[2020-07-14 03:44] LABS: VANCOMYCIN,RANDOM 21.1 mcg/mL
[2020-07-14 03:54] LABS: ANION GAP 5 mmol/L (5-15); CALCIUM 8.3 mg/dL (8.5-10.1); CHLORIDE 111 mmol/L (98-107); CREATININE 1.16 mg/dL (0.7-1.3); TRIGLYCERIDES 187 mg/dL (50-200)
[2020-07-14] MEDS: NOREPINEPHRINE 8 MG in SODIUM CHLORIDE 0.9% 242 ML IV PRN (05:51)
[2020-07-14] MEDS: MEROPENEM 1 GM in SODIUM CHLORIDE 0.9% 100 ML IV SCH ×2 (07:26→20:14)
[2020-07-14] MEDS: VANCOMYCIN 1,200 MG in SODIUM CHLORIDE 0.9% 250 ML IV SCH (09:09)
[2020-07-14] MEDS: GUAIFENESIN 100 MG/5 ML, 10ML UDC PO SCH ×3 (09:11→20:06)
[2020-07-14] MEDS: DOCUSATE 50 MG/5 ML, 10ML UDC PO SCH (09:12)
[2020-07-14] MEDS: FINASTERIDE 5 MG TABLET PO SCH (09:12)
[2020-07-14] MEDS: ENOXAPARIN 40 MG/0.4 ML SQ SCH (09:12)
[2020-07-14] MEDS: CARBAMAZEPINE 200 MG TABLET PO SCH (09:15)
[2020-07-14] MEDS: PANTOPRAZOLE 40 MG IV IV SCH (09:49)
[2020-07-14] MEDS ORDERED: FUROSEMIDE 20 MG/2 ML IV ONE (19:23)
[2020-07-14] MEDS: MELATONIN 5 MG TABLET PO PRN (20:03)
[2020-07-14] MEDS: ACETAMINOPHEN 325 MG TABLET PO PRN (20:03)
[2020-07-15] MEDS: INSULIN LISPRO 100 UNITS/ML, PEN SQ-INSULIN SCH ×4 (03:00→20:00)
[2020-07-15 03:52] LABS: BASOPHILS % (AUTO) 0 % (0-1); EOSINOPHILS % (AUTO) 2 % (1-7); LYMPHOCYTES % (AUTO) 6 % (22-44); MEAN CORPUSCULAR HEMOGLOBIN 31.9 pg (27.5-34.5); MEAN CORPUSCULAR HGB CONC 34.1 g/dL (33.2-36.2); MEAN PLATELET VOLUME 9.5 fL (7.4-10.4); MONOCYTES % (AUTO) 2 % (2-9); NEUTROPHILS % (AUTO) 90 % (42-75); PLATELET COUNT 137 x10^3/uL (130-400); RED BLOOD COUNT 3.67 x10^6/uL (4.38-5.82); RED CELL DISTRIBUTION WIDTH 14.7 % (9.4-14.8)
[2020-07-15 03:53] LABS: MD NO
[2020-07-15 04:07] LABS: ANION GAP 6 mmol/L (5-15); CALCIUM 8.3 mg/dL (8.5-10.1); CHLORIDE 112 mmol/L (98-107); CREATININE 0.93 mg/dL (0.7-1.3)
[2020-07-15] MEDS: MEROPENEM 1 GM in SODIUM CHLORIDE 0.9% 100 ML IV SCH ×2 (07:16→19:57)
[2020-07-15] MEDS: ENOXAPARIN 40 MG/0.4 ML SQ SCH (08:59)
[2020-07-15] MEDS: GUAIFENESIN 100 MG/5 ML, 10ML UDC PO SCH ×3 (08:59→19:57)
[2020-07-15] MEDS: FINASTERIDE 5 MG TABLET PO SCH (09:00)
[2020-07-15] MEDS: DOCUSATE 50 MG/5 ML, 10ML UDC PO SCH (09:00)
[2020-07-15] MEDS: CARBAMAZEPINE 200 MG TABLET PO SCH (09:00)
[2020-07-15] MEDS: VANCOMYCIN 1,200 MG in SODIUM CHLORIDE 0.9% 250 ML IV SCH (09:05)
[2020-07-15] MEDS ORDERED: FUROSEMIDE 40 MG/4 ML IV ONE (09:30)
[2020-07-15] MEDS: PANTOPRAZOLE 40 MG IV IV SCH (09:32)
[2020-07-15] MEDS ORDERED: SUCCINYLCHOLINE 20 MG/ML, 10ML ONE (18:00)
[2020-07-15] MEDS ORDERED: ETOMIDATE 20 MG/10 ML ONE (18:00)
[2020-07-15] MEDS: PROPOFOL 100 ML IV PRN ×2 (19:59→23:24)
[2020-07-16] MEDS: INSULIN LISPRO 100 UNITS/ML, PEN SQ-INSULIN SCH ×4 (03:00→20:13)
[2020-07-16] MEDS: NOREPINEPHRINE 8 MG in SODIUM CHLORIDE 0.9% 242 ML IV PRN ×3 (04:04→22:08)
[2020-07-16 04:25] LABS: BASOPHILS % (AUTO) 0 % (0-1); EOSINOPHILS % (AUTO) 3 % (1-7); LYMPHOCYTES % (AUTO) 8 % (22-44); MEAN PLATELET VOLUME 9.6 fL (7.4-10.4); MONOCYTES % (AUTO) 3 % (2-9); NEUTROPHILS % (AUTO) 86 % (42-75); PLATELET COUNT 162 x10^3/uL (130-400); RED CELL DISTRIBUTION WIDTH 14.8 % (9.4-14.8)
[2020-07-16 04:31] LABS: ANION GAP 6 mmol/L (5-15); CALCIUM 8.3 mg/dL (8.5-10.1); CHLORIDE 110 mmol/L (98-107); CREATININE 1.07 mg/dL (0.7-1.3)
[2020-07-16 04:32] LABS: MD NO
[2020-07-16] MEDS: PROPOFOL 100 ML IV PRN ×2 (05:41→17:55)
[2020-07-16] MEDS: ACETAMINOPHEN 325 MG TABLET PO PRN (06:47)
[2020-07-16] MEDS: MEROPENEM 1 GM in SODIUM CHLORIDE 0.9% 100 ML IV SCH ×2 (07:15→20:11)
[2020-07-16] MEDS: DOCUSATE 50 MG/5 ML, 10ML UDC PO SCH (09:00)
[2020-07-16] MEDS: FINASTERIDE 5 MG TABLET PO SCH (09:20)
[2020-07-16] MEDS: GUAIFENESIN 100 MG/5 ML, 10ML UDC PO SCH ×3 (09:21→20:11)
[2020-07-16] MEDS: VANCOMYCIN 1,200 MG in SODIUM CHLORIDE 0.9% 250 ML IV SCH (09:21)
[2020-07-16] MEDS: ENOXAPARIN 40 MG/0.4 ML SQ SCH (09:21)
[2020-07-16] MEDS: CARBAMAZEPINE 200 MG TABLET PO SCH (09:21)
[2020-07-16] MEDS ORDERED: ALBUTEROL/IPRATROPIUM 2.5MG/0.5MG, 3 ML ONE (09:34)
[2020-07-16] MEDS: ALBUTEROL/IPRATROPIUM 2.5MG/0.5MG, 3 ML NPPB SCH ×3 (09:43→18:47)
[2020-07-16] MEDS: PANTOPRAZOLE 40 MG IV IV SCH (10:05)
[2020-07-16] MEDS: FENTANYL PF 1,000 MCG in SODIUM CHLORIDE 0.9% 80 ML IV PRN (10:06)
[2020-07-17] MEDS: PROPOFOL 100 ML IV PRN ×4 (02:00→20:24)
[2020-07-17] MEDS: INSULIN LISPRO 100 UNITS/ML, PEN SQ-INSULIN SCH ×4 (03:59→20:26)
[2020-07-17 04:21] LABS: BASOPHILS % (AUTO) 1 % (0-1); EOSINOPHILS % (AUTO) 3 % (1-7); LYMPHOCYTES % (AUTO) 7 % (22-44); MEAN CORPUSCULAR HEMOGLOBIN 32.2 pg (27.5-34.5); MEAN CORPUSCULAR HGB CONC 33.9 g/dL (33.2-36.2); MEAN PLATELET VOLUME 9.1 fL (7.4-10.4); MONOCYTES % (AUTO) 3 % (2-9); NEUTROPHILS % (AUTO) 86 % (42-75); PLATELET COUNT 154 x10^3/uL (130-400); RED BLOOD COUNT 3.18 x10^6/uL (4.38-5.82); RED CELL DISTRIBUTION WIDTH 14.8 % (9.4-14.8)
[2020-07-17 04:23] LABS: MD NO
[2020-07-17 04:34] LABS: ANION GAP 4 mmol/L (5-15); CALCIUM 7.6 mg/dL (8.5-10.1); CHLORIDE 110 mmol/L (98-107); CREATININE 0.85 mg/dL (0.7-1.3); TRIGLYCERIDES 216 mg/dL (50-200)
[2020-07-17] MEDS: FENTANYL PF 1,000 MCG in SODIUM CHLORIDE 0.9% 80 ML IV PRN (05:28)
[2020-07-17] MEDS: MEROPENEM 1 GM in SODIUM CHLORIDE 0.9% 100 ML IV SCH ×2 (06:37→20:18)
[2020-07-17] MEDS: ALBUTEROL/IPRATROPIUM 2.5MG/0.5MG, 3 ML NPPB SCH ×3 (07:01→20:06)
[2020-07-17] MEDS: DOCUSATE 50 MG/5 ML, 10ML UDC PO SCH (08:40)
[2020-07-17] MEDS: ENOXAPARIN 40 MG/0.4 ML SQ SCH (09:00)
[2020-07-17] MEDS: VANCOMYCIN 1,200 MG in SODIUM CHLORIDE 0.9% 250 ML IV SCH (09:24)
[2020-07-17] MEDS: PANTOPRAZOLE 40 MG IV IV SCH (09:24)
[2020-07-17] MEDS: GUAIFENESIN 100 MG/5 ML, 10ML UDC PO SCH ×3 (09:25→20:18)
[2020-07-17] MEDS: CARBAMAZEPINE 200 MG TABLET PO SCH (09:25)
[2020-07-17] MEDS: FINASTERIDE 5 MG TABLET PO SCH (09:25)
[2020-07-17] MEDS: QUETIAPINE 25MG TABLET PO SCH ×2 (15:56→20:23)
[2020-07-17] MEDS: ACETAMINOPHEN 325 MG TABLET PO PRN (15:56)
[2020-07-18] MEDS: ALBUTEROL/IPRATROPIUM 2.5MG/0.5MG, 3 ML NPPB SCH ×5 (00:48→23:59)
[2020-07-18] MEDS: FENTANYL PF 1,000 MCG in SODIUM CHLORIDE 0.9% 80 ML IV PRN ×2 (01:24→15:25)
[2020-07-18] MEDS: INSULIN LISPRO 100 UNITS/ML, PEN SQ-INSULIN SCH ×4 (03:00→20:14)
[2020-07-18] MEDS: PROPOFOL 100 ML IV PRN ×5 (03:21→23:27)
[2020-07-18 04:08] LABS: BASOPHILS % (AUTO) 0 % (0-1); EOSINOPHILS % (AUTO) 4 % (1-7); LYMPHOCYTES % (AUTO) 5 % (22-44); MEAN CORPUSCULAR HEMOGLOBIN 32.2 pg (27.5-34.5); MEAN CORPUSCULAR HGB CONC 33.9 g/dL (33.2-36.2); MEAN PLATELET VOLUME 9.4 fL (7.4-10.4); MONOCYTES % (AUTO) 3 % (2-9); NEUTROPHILS % (AUTO) 88 % (42-75); PLATELET COUNT 129 x10^3/uL (130-400); RED BLOOD COUNT 2.94 x10^6/uL (4.38-5.82)
[2020-07-18 04:11] LABS: CHLORIDE 108 mmol/L (98-107)
[2020-07-18 04:12] LABS: MD NO
[2020-07-18 04:19] LABS: ANION GAP 3 mmol/L (5-15); CALCIUM 7.7 mg/dL (8.5-10.1); CREATININE 0.78 mg/dL (0.7-1.3)
[2020-07-18] MEDS: ACETAMINOPHEN 325 MG TABLET PO PRN ×3 (04:53→23:26)
[2020-07-18] MEDS: NOREPINEPHRINE 8 MG in SODIUM CHLORIDE 0.9% 242 ML IV PRN ×2 (06:41→15:25)
[2020-07-18] MEDS: MEROPENEM 1 GM in SODIUM CHLORIDE 0.9% 100 ML IV SCH ×2 (06:41→20:13)
[2020-07-18] MEDS: DOCUSATE 50 MG/5 ML, 10ML UDC PO SCH (07:37)
[2020-07-18] MEDS: FINASTERIDE 5 MG TABLET PO SCH (07:46)
[2020-07-18] MEDS: CARBAMAZEPINE 200 MG TABLET PO SCH (07:46)
[2020-07-18] MEDS: QUETIAPINE 25MG TABLET PO SCH ×3 (07:46→20:14)
[2020-07-18] MEDS: GUAIFENESIN 100 MG/5 ML, 10ML UDC PO SCH ×3 (07:46→20:14)
[2020-07-18] MEDS: ENOXAPARIN 40 MG/0.4 ML SQ SCH (07:46)
[2020-07-18] MEDS: VANCOMYCIN 1,200 MG in SODIUM CHLORIDE 0.9% 250 ML IV SCH (08:12)
[2020-07-18] MEDS: PANTOPRAZOLE 40 MG IV IV SCH (08:12)
[2020-07-18] MEDS ORDERED: FUROSEMIDE 40 MG/4 ML IV SCH (09:00)
[2020-07-18] MEDS ORDERED: SODIUM CHLORIDE 0.9% 1,000ML IVBOLUS ONE (17:30)
[2020-07-18] MEDS ORDERED: VASOPRESSIN 20 UNIT in SODIUM CHLORIDE 0.9% 99 ML IV PRN (17:30)
[2020-07-19] MEDS: INSULIN LISPRO 100 UNITS/ML, PEN SQ-INSULIN SCH ×4 (03:00→21:00)
[2020-07-19] MEDS: NOREPINEPHRINE 8 MG in SODIUM CHLORIDE 0.9% 242 ML IV PRN ×3 (03:42→18:41)
[2020-07-19 04:27] LABS: BASOPHILS % (AUTO) 1 % (0-1); EOSINOPHILS % (AUTO) 5 % (1-7); LYMPHOCYTES % (AUTO) 7 % (22-44); MEAN CORPUSCULAR HGB CONC 33.9 g/dL (33.2-36.2); MEAN PLATELET VOLUME 9.4 fL (7.4-10.4); MONOCYTES % (AUTO) 3 % (2-9); NEUTROPHILS % (AUTO) 86 % (42-75); PLATELET COUNT 155 x10^3/uL (130-400); RED BLOOD COUNT 2.82 x10^6/uL (4.38-5.82); RED CELL DISTRIBUTION WIDTH 14.9 % (9.4-14.8)
[2020-07-19 04:30] LABS: MD NO
[2020-07-19 04:39] LABS: CALCIUM 7.5 mg/dL (8.5-10.1); CREATININE 0.88 mg/dL (0.7-1.3)
[2020-07-19 04:47] LABS: ANION GAP 2 mmol/L (5-15); CHLORIDE 107 mmol/L (98-107)
[2020-07-19] MEDS: PROPOFOL 100 ML IV PRN ×3 (05:20→19:55)
[2020-07-19] MEDS: ALBUTEROL/IPRATROPIUM 2.5MG/0.5MG, 3 ML NPPB SCH ×3 (06:34→21:00)
[2020-07-19] MEDS: MEROPENEM 1 GM in SODIUM CHLORIDE 0.9% 100 ML IV SCH (08:22)
[2020-07-19] MEDS: PANTOPRAZOLE 40 MG IV IV SCH (09:22)
[2020-07-19] MEDS: DOCUSATE 50 MG/5 ML, 10ML UDC PO SCH (09:22)
[2020-07-19] MEDS: CARBAMAZEPINE 200 MG TABLET PO SCH (09:22)
[2020-07-19] MEDS: QUETIAPINE 25MG TABLET PO SCH ×3 (09:22→21:33)
[2020-07-19] MEDS: GUAIFENESIN 100 MG/5 ML, 10ML UDC PO SCH ×3 (09:22→21:33)
[2020-07-19] MEDS: FINASTERIDE 5 MG TABLET PO SCH (09:22)
[2020-07-19] MEDS: ENOXAPARIN 40 MG/0.4 ML SQ SCH (09:23)
[2020-07-19] MEDS: VANCOMYCIN 1,200 MG in SODIUM CHLORIDE 0.9% 250 ML IV SCH (09:23)
[2020-07-19] MEDS ORDERED: PHARMACOKINETIC MONITORING MC PRN (09:45)
[2020-07-19] MEDS ORDERED: VANCOMYCIN PER PHARMACY MC PRN (09:45)
[2020-07-19] MEDS: ACETAMINOPHEN 325 MG TABLET PO PRN (12:00)
[2020-07-19] MEDS: FENTANYL PF 1,000 MCG in SODIUM CHLORIDE 0.9% 80 ML IV PRN (12:01)
[2020-07-19] MEDS: VASOPRESSIN 20 UNIT in SODIUM CHLORIDE 0.9% 99 ML IV PRN ×2 (13:07→20:26)
[2020-07-19] MEDS ORDERED: MEROPENEM 1 GM in SODIUM CHLORIDE 0.9% 100 ML IV SCH (20:30)
[2020-07-19] MEDS ORDERED: NOREPINEPHRINE 32 MG in SODIUM CHLORIDE 0.9% 218 ML IV PRN (23:45)
[2020-07-20] MEDS ORDERED: SODIUM CHLORIDE 0.9%, 500ML IVBOLUS ONE (00:30)
[2020-07-20] MEDS ORDERED: PHENYLEPHRINE 100 MG in SODIUM CHLORIDE 0.9% 240 ML IV PRN (00:30)
[2020-07-20] MEDS: ALBUTEROL/IPRATROPIUM 2.5MG/0.5MG, 3 ML NPPB SCH (02:35)
[2020-07-20] MEDS ORDERED: SODIUM BICARB 8.4%, 50ML SYRINGE ONE (03:30)
[2020-07-20] MEDS ORDERED: ATROPINE SYRINGE 0.1 MG/ML, 10ML ONE (03:58)
[2020-07-20] MEDS ORDERED: EPINEPHRINE SYRINGE 0.1 MG/ML, 10ML ONE (03:58)
[2020-07-20] MEDS ORDERED: EPINEPHRINE 5 MG in SODIUM CHLORIDE 0.9% 245 ML IV PRN (04:00)
[2020-07-20 04:08] LABS: MEAN CORPUSCULAR HEMOGLOBIN 31.8 pg (27.5-34.5); MEAN CORPUSCULAR HGB CONC 32.7 g/dL (33.2-36.2); MEAN PLATELET VOLUME 10.1 fL (7.4-10.4); PLATELET COUNT 195 x10^3/uL (130-400); RED BLOOD COUNT 2.96 x10^6/uL (4.38-5.82); RED CELL DISTRIBUTION WIDTH 15.3 % (9.4-14.8)
[2020-07-20 04:11] LABS: ANION GAP 9 mmol/L (5-15); CALCIUM 7.5 mg/dL (8.5-10.1); CHLORIDE 108 mmol/L (98-107); CREATININE 1.98 mg/dL (0.7-1.3); TRIGLYCERIDES 221 mg/dL (50-200)
[2020-07-20] MEDS ORDERED: CODE BLUE RESPONSE XX ONE (04:30)
[2020-07-20 04:41] LABS: MD YES
[2020-07-20 04:45] LABS: BAND#(MANUAL) 0.93 x10^3/uL; BANDS%(MANUAL) 9 % (0-7); BASOS% (MANUAL) 1 % (0-1); EOS#(MANUAL) 0.21 x10^3/uL (0.0-0.4); EOS% (MANUAL) 2 % (1-7); LYMPH#(MANUAL) 1.13 x10^3/uL (1-3.4); LYMPHS% (MANUAL) 11 % (22-44); METAMYELOCYTES% (MANUAL) 1 % (0-1); MONOS#(MANUAL) 0.72 x10^3/uL (0.3-2.7); MONOS% (MANUAL) 7 % (2-9); MYELOCYTES# (MANUAL) 0.21 x10^3/uL (0-0); MYELOCYTES% (MANUAL) 2 % (0-0); SEGS% (MANUAL) 67 % (42-75)
[2020-07-20 04:46] LABS: <PLATELET ESTIMATE> ADEQUATE; ANISOCYTOSIS 1+; LARGE PLATELETS 1+; OVALOCYTES 1+; POLYCHROMASIA 1+
[2020-07-20] MEDS ORDERED: VANCOMYCIN 1,200 MG in SODIUM CHLORIDE 0.9% 250 ML IV SCH (09:30)
== END 2020-07-20 06:16 | disposition expired | DRG 870 ==
LOC: SUATTDRO 16:34 → ED 16:43 → EDIP 17:33 → 4WST 20:39 → ICU 07-05 13:58
PROVIDERS: ADMIT Internal Medicine; ATTEND Internal Medicine
PROC: XW033E5 Introduction of Remdesivir Anti-infective into Peripheral Vein, Percutaneous Approach, New Technology Group 5 (ICD-10-PCS; 2020-06-30)
PROC: 5A0935A Assistance with Respiratory Ventilation, Less than 24 Consecutive Hours, High Flow/Velocity Cannula (ICD-10-PCS; 2020-07-01)
PROC: 5A0935A Assistance with Respiratory Ventilation, Less than 24 Consecutive Hours, High Flow/Velocity Cannula (ICD-10-PCS; 2020-07-02)
PROC: 5A0935A Assistance with Respiratory Ventilation, Less than 24 Consecutive Hours, High Flow/Velocity Cannula (ICD-10-PCS; 2020-07-04)
PROC: 5A0935A Assistance with Respiratory Ventilation, Less than 24 Consecutive Hours, High Flow/Velocity Cannula (ICD-10-PCS; 2020-07-05)
PROC: 5A0935A Assistance with Respiratory Ventilation, Less than 24 Consecutive Hours, High Flow/Velocity Cannula (ICD-10-PCS; 2020-07-06)
PROC: 5A0935A Assistance with Respiratory Ventilation, Less than 24 Consecutive Hours, High Flow/Velocity Cannula (ICD-10-PCS; 2020-07-07)
PROC: 0BH17EZ Insertion of Endotracheal Airway into Trachea, Via Natural or Artificial Opening (ICD-10-PCS; 2020-07-08)
PROC: 5A1945Z Respiratory Ventilation, 24-96 Consecutive Hours (ICD-10-PCS; 2020-07-08)
PROC: 5A0935A Assistance with Respiratory Ventilation, Less than 24 Consecutive Hours, High Flow/Velocity Cannula (ICD-10-PCS; 2020-07-10)
PROC: 5A0935A Assistance with Respiratory Ventilation, Less than 24 Consecutive Hours, High Flow/Velocity Cannula (ICD-10-PCS; 2020-07-11)
PROC: 0T9B70Z Drainage of Bladder with Drainage Device, Via Natural or Artificial Opening (ICD-10-PCS; 2020-07-12)
PROC: 5A0935A Assistance with Respiratory Ventilation, Less than 24 Consecutive Hours, High Flow/Velocity Cannula (ICD-10-PCS; 2020-07-13)
PROC: 5A09357 Assistance with Respiratory Ventilation, Less than 24 Consecutive Hours, Continuous Positive Airway Pressure (ICD-10-PCS; 2020-07-14)
PROC: 5A1955Z Respiratory Ventilation, Greater than 96 Consecutive Hours (ICD-10-PCS; principal; 2020-07-15)
PROC: 0BH17EZ Insertion of Endotracheal Airway into Trachea, Via Natural or Artificial Opening (ICD-10-PCS; 2020-07-15)
PROC: 5A09357 Assistance with Respiratory Ventilation, Less than 24 Consecutive Hours, Continuous Positive Airway Pressure (ICD-10-PCS; 2020-07-15)
DX: A41.89 Other specified sepsis (principal); J12.82 Pneumonia due to coronavirus disease 2019; U07.1 COVID-19; J15.9 Unspecified bacterial pneumonia; G93.41 Metabolic encephalopathy; J80 Acute respiratory distress syndrome; N17.0 Acute kidney failure with tubular necrosis; E43 Unspecified severe protein-calorie malnutrition; E87.2 Acidosis; E87.0 Hyperosmolality and hypernatremia; R57.9 Shock, unspecified; Z99.11 Dependence on respirator [ventilator] status; I46.9 Cardiac arrest, cause unspecified; Z66 Do not resuscitate; Z51.5 Encounter for palliative care; N40.0 Benign prostatic hyperplasia without lower urinary tract symptoms; I10 Essential (primary) hypertension; R31.29 Other microscopic hematuria; G50.0 Trigeminal neuralgia; R73.9 Hyperglycemia, unspecified; E87.6 Hypokalemia; Z68.24 Body mass index [BMI] 24.0-24.9, adult; Z79.899 Other long term (current) drug therapy
CPT/HCPCS: 36415; 36573; 36600; 71045; 74018; 80048; 80053; 80069; 80156; 80202; 81001; 82803; 82962; 83036; 83605; 83615; 83690; 83735; 83880; 84145; 84478; 85025; 85379; 85610; 86140; 87040; 87070; 87081; 87205; 93005; 94002; 94003; 94640; 96374; 96375; 99291; G0378; J0456; J0461; J0696; J1100; J1650; J1940; J2185; J2250; J2704; J3010; J3370; J3480; J7070; C1751; C9113; J0330; J1815; J2060; J7030; J7040; J7050; J7120; U0003